=== PATIENT | male | born 1990 | race African-American/Black ===

== ENCOUNTER → 2023-04-28 13:21 | Outpatient (CLI) | payer OTHER, SELFPAY ==
--- NOTE | ~2023-04-28 | XR_ITS ---
EXAMINATION: XR hip RT min 2V DATE: 04/28/2023 14:44 INDICATION: Right hip pain. TECHNIQUE: 2 views of right hip were obtained. COMPARISON: None. FINDINGS: Bone alignment is normal. No fracture. There is decreased femoral head/neck offset anterola terally which may be seen with femoral acetabular impingement. There is mild right hip osteoarthritis characterized by a tiny osteophyte. IMPRESSION: 1. Mild right hip osteoarthritis. Reviewed, dictated and finalized at location A. [employer]ICAL METER TESTER
--- NOTE | ~2023-04-28 | XR_ITS ---
EXAMINATION: XR lumbar spine min 4V DATE: 04/28/2023 14:44 INDICATION: Back pain radiating to the hips. TECHNIQUE: 5 views of lumbar spine were obtained. COMPARISON: None. FINDINGS: Bone alignment is normal. There is mild chronic anterior wedging of T11 vertebral body, lik yohan physiologic. Intervertebral disc heights are normal. At L5-S1, there is mild right and moderate l eft facet joint osteoarthritis. IMPRESSION: 1. Facet joint osteoarthritis at L5-S1. Reviewed, dictated and finalized at location A. LING PULLER
--- NOTE | ~2023-04-28 | XR_ITS ---
XR hip LT min 2V 04/28/2023 14:44 Indication: Left hip pain Procedure: 2 views left hip Comparison: No prior studies for comparison. Findings: No fracture, subluxation or dislocation. No soft tissue abnormality. No foreign body. Impression: 1: No acute fracture. Reviewed, dictated and finalized at [facility] L. RANCE ANALYST Impression: 1: No acute fracture.
== END ==
PROVIDERS: PCP Emergency Medicine; Visit Provider Emergency Medicine
DX: M51.37 Other intervertebral disc degeneration, lumbosacral region (principal); M16.11 Unilateral primary osteoarthritis, right hip
CPT/HCPCS: 72110; 73502